=== PATIENT | female | born 1985 ===

== ENCOUNTER 2018-04-14 17:23 | Emergency (ER) | payer MEDICAID ==
[2018-04-14 17:59] VITALS: BMI 40.5
[2018-04-14 18:30] LABS: BASO % 0.3 % (0.0-2.0); EOS # 0.1 K/uL (0.0-0.7); EOS % 1.6 % (0.0-4.0); HEMOGLOBIN 12.5 g/dL (12.0-16.0); LYMPH # 1.4 K/uL (1.0-4.3); LYMPH % 17.9 % (20.0-40.0); MEAN CELL VOLUME 84.1 fl (81.0-99.0); MEAN CORPUSCULAR HEMOGLOBIN 27.8 pg (27.0-31.0); MEAN CORPUSCULAR HGB CONC 33.1 g/dL (33.0-37.0); MEAN PLATELET VOLUME 8.5 fl (7.2-11.7); MONO # 0.4 K/uL (0.0-0.8); MONO % 5.8 % (0.0-10.0); NEUT # 5.7 K/uL (1.8-7.0); NEUT % 74.4 % (50.0-75.0); RBC 4.47 Mil/uL (3.80-5.20); RED CELL DISTRIBUTION WIDTH 14.4 % (11.5-14.5); WHITE BLOOD COUNT 7.6 K/uL (4.8-10.8)
--- NOTE | 2018-04-14 18:38 | ED PDOC ---
HPI: Chest Pain Time Seen by Provider: 04/14/18 17:44 Chief Complaint (Nursing): Chest Pain Chief Complaint (Provider): Chest Pain History Per: Patient History/Exam Limitations: no limitations Onset/Duration Of Symptoms: Hrs Current Symptoms Are (Timing): Still Present Additional Complaint(s): 33 y/o female with a PMHx of Seizures, HTN, CVA and Asthma presents to the ED for evaluation of right sided chest pain. Patient reports she was on the bus when she developed right sided chest pain. Patient states when she informed the business broker, he did not help and thus she got off the bus. Patient reports she then passed out and a bystander called [phone]. Patient is now complaining of a headache. Otherwise, patient denies numbness, weakness, visual changes and shortness of breath. PMD: Bryan Castillo Past Medical History Reviewed: Historical Data, Nursing Documentation, Vital Signs - Medical History PMH: Asthma, CVA, HTN, Seizures Denies: Chronic Kidney Disease - Surgical History Surgical History: No Surg Hx - Family History Family History: States: Unknown Family Hx - Social History Current smoker - smoking cessation education provided: No Alcohol: None - Home Medications Home Medications: Ambulatory Orders Medication Instructions Recorded Nitrofurantoin Macrocrystals 100 mg PO BID #14 cap 04/14/18 [Macrobid] - Allergies Allergies/Adverse Reactions: Allergies Allergy/AdvReac Type Severity Reaction Status Date / Time cephalexin [From Keflex] Allergy ANAPHYLAXIS Verified 04/14/18 17:33 risperidone Allergy ANAPHYLAXIS Verified 04/14/18 17:33 Review of Systems ROS Statement: Except As Marked, All Systems Reviewed And Found Negative Cardiovascular: Positive for: Chest Pain Neurological: Positive for: Headache, Other (loss of consciousness) Physical Exam - Reviewed Nursing Documentation Reviewed: Yes Vital Signs Reviewed: Yes - Physical Exam Appears: Positive for: No Acute Distress Head Exam: Positive for: ATRAUMATIC, NORMOCEPHALIC Skin: Positive for: Normal Color, Warm, Dry Eye Exam: Positive for: Normal appearance, EOMI, PERRL Neck: Positive for: Normal, Painless ROM, Supple Cardiovascular/Chest: Positive for: Regular Rate, Rhythm. Negative for: Murmur Respiratory: Positive for: Normal Breath Sounds. Negative for: Respiratory Distress Gastrointestinal/Abdominal: Positive for: Normal Exam, Soft. Negative for: Tend erness Back: Positive for: Normal Inspection. Negative for: L CVA Tenderness, R CVA Tenderness, Vertebral Tenderness Extremity: Positive for: Normal ROM. Negative for: Deformity Neurologic/Psych: Positive for: Alert, Oriented. Negative for: Motor/Sensory Deficits - Laboratory Results Result Diagrams: 04/14/18 18:10 04/14/18 17:59 Medical Decision Making Medical Decision Making: Time: 174 Impression: Syncope and right sided chest pain Plan: -- CT Head w/o Contrast -- EKG -- CMP -- Troponin I -- ED Urine -- ED Urine Dipstick -- CBC with Differentials -- D Dimer -- PTT -- Prothrombin Time -- CXR Portable -- Glucose, POC -- Glucose, Blood, POC -- Urinalysis Father (cell): [phone] Home: CT RESULTS FINDINGS: BRAIN No acute intraparenchymal hemorrhage. No mass lesion. No CT evidence for acute territorial infarct. No midline shift or extra-axial collections. VENTRICLES: No hydrocephalus. ORBITS: The orbits are unremarkable. SINUSES AND MASTOIDS: The paranasal sinuses and mastoid air cells are clear. BONES: No fracture. SOFT TISSUES: Unremarkable. IMPRESSION: No acute intracranial abnormality. Electronically signed on Apr 14, 2018 6:49:40 PM EST by: Mj Sullivan M.D., Certified by [facility], Diagnostic Radiology 18:50 Pt ambulating around ED without difficulty. Time: 1899 -- Patient endorsed to Dr. Rolle, pending labs and re-evaluation. Scribe Attestation: Documented by Ya Nielson, acting as a scribe for Adina Mathews MD. Provider Scribe Attestation: All medical record entries made by the Scribe were at my direction and personally dictated by me. I have reviewed the chart and agree that the record accurately reflects my personal performance of the history, physical exam, medical decision making, and the department course for this patient. I have also personally directed, reviewed, and agree with the discharge instructions and disposition. Disposition - Clinical Impression Clinical Impression: UTI (urinary tract infection) - Patient ED Disposition Is Patient to be Admitted: Transfer of Care - Disposition Disposition: Transfer of Care Disposition Time: 19:00 Condition: IMPROVED Additional Instructions: follow up with your primary doctor in 1-2 days return to the ED with any worsening or concerning symptoms Prescriptions: Nitrofurantoin Macrocrystals [Macrobid] 100 mg PO BID #14 cap Instructions: Urinary Tract Infection, Adult (DC) Forms: [email or web address] (Japanese), [facility] ED School/Work Excuse Patient Signed Over To: Sigifredo Rolle Handoff Comments: Pending CMP.
[2018-04-14 18:44] LABS: INR 1.1; PROTHROMBIN TIME 12.7 Seconds (9.8-13.1)
[2018-04-14 18:47] LABS: PARTIAL THROMBOPLASTIN TIME 38.2 Seconds (25.6-37.1)
[2018-04-14 18:52] LABS: SQUAMOUS EPITHIAL < 1 /hpf (0-5); URINE BILIRUBIN NEGATIVE (NEGATIVE); URINE BLOOD NEGATIVE (NEGATIVE); URINE CLARITY SLIGHTY-CLOUDY (Clear); URINE COLOR STRAW (YELLOW); URINE GLUCOSE (UA) NEG (NEGATIVE); URINE LEUKOCYTE ESTERASE LARGE Leu/uL (Negative); URINE PROTEIN NEGATIVE (NEGATIVE); URINE UROBILINOGEN 0.2-1.0 mg/dL (0.2-1.0)
[2018-04-14 18:52] LABS: D DIMER < 200 ng/mlDDU (0-230)
[2018-04-14 19:01] LABS: BLOOD UREA NITROGEN 12 mg/dl (7-17); CALCIUM 9.6 mg/dL (8.4-10.2); GFR NON-AFRICAN AMERICAN > 60
[2018-04-14 19:19] LABS: ALB/GLOB RATIO 1.3 (1.0-2.1); ALBUMIN 4.4 g/dL (3.5-5.0); ALT/SGPT 28 U/L (9-52); AST/SGOT 42 U/L (14-36)
--- NOTE | 2018-04-14 19:34 | ED PDOC ---
- Laboratory Results Result Diagrams: 04/14/18 18:10 04/14/18 17:59 Lab Results: PT 12.7 Seconds (9.8-13.1) 04/14/18 18:10 INR 1.1 04/14/18 18:10 APTT 38.2 Seconds (25.6-37.1) H 04/14/18 18:10 D-Dimer, Quantitative < 200 ng/mlDDU (0-230) 04/14/18 18:10 Troponin I < 0.0120 ng/mL (0.00-0.120) 04/14/18 17:59 Total Bilirubin 0.7 mg/dl (0.2-1.3) 04/14/18 17:59 AST 42 U/L (14-36) H 04/14/18 17:59 ALT 28 U/L (9-52) 04/14/18 17:59 Alkaline Phosphatase 89 U/L (38-126) 04/14/18 17:59 Total Protein 7.7 G/DL (6.3-8.2) 04/14/18 17:59 Albumin 4.4 g/dL (3.5-5.0) 04/14/18 17:59 Globulin 3.3 gm/dL (2.2-3.9) 04/14/18 17:59 Albumin/Globulin Ratio 1.3 (1.0-2.1) 04/14/18 17:59 Urine Color Straw (YELLOW) 04/14/18 18:30 Urine Clarity Slighty-cloudy (Clear) 04/14/18 18:30 Urine pH 8.0 (5.0-8.0) 04/14/18 18:30 Ur Specific [place] 1.005 (1.003-1.030) 04/14/18 18:30 Urine Protein Negative mg/dL (NEGATIVE) 04/14/18 18:30 Urine Glucose (UA) Neg mg/dL (NEGATIVE) 04/14/18 18:30 Urine Ketones Negative mg/dL (NEGATIVE) 04/14/18 18:30 Urine Blood Negative (NEGATIVE) 04/14/18 18:30 Urine Nitrate Negative (NEGATIVE) 04/14/18 18:30 Urine Bilirubin Negative (NEGATIVE) 04/14/18 18:30 Urine Urobilinogen 0.2-1.0 mg/dL (0.2-1.0) 04/14/18 18:30 Ur Leukocyte Esterase Large Markell/uL (Negative) 04/14/18 18:30 Urine RBC (Auto) 3 /hpf (0-3) 04/14/18 18:30 Urine Microscopic WBC 58 /hpf (0-5) H 04/14/18 18:30 Ur Squamous Epith Cells < 1 /hpf (0-5) 04/14/18 18:30 Medical Decision Making Medical Decision Making: Time: 1899 -- Patient endorsed to me by Dr. Mathews, pending labs and re-evaluation. Time: 1939 -- Labs reviewed and demonstrate a UTI. On re-evaluation, patient is awake and alert. Patient is stable for discharge home with a diagnosis of a UTI and a prescription for Macrobid. Patient instructed to follow up with PMD in 1-2 days for further management. Scribe Attestation: Documented by Ya Nielson, acting as a scribe for Sigifredo Rolle MD. Provider Scribe Attestation: All medical record entries made by the Scribe were at my direction and personal ly dictated by me. I have reviewed the chart and agree that the record accurately reflects my personal performance of the history, physical exam, medical decision making, and the department course for this patient. I have also personally directed, reviewed, and agree with the discharge instructions and disposition. Disposition Counseled Patient/Family Regarding: Studies Performed, Diagnosis, Need For Followup, Rx Given - Clinical Impression Clinical Impression: UTI (urinary tract infection) - POA Present On Arrival: None - Disposition Disposition: Routine/Home Disposition Time: 19:40 Condition: IMPROVED Additional Instructions: follow up with your primary doctor in 1-2 days return to the ED with any worsening or concerning symptoms Prescriptions: Nitrofurantoin Macrocrystals [Macrobid] 100 mg PO BID #14 cap Instructions: Urinary Tract Infection, Adult (DC) Forms: [employer] ([place])
[2018-04-15 00:58] VITALS: BP 122/62; PULSE 88; RESP 18; TEMP 97.6; O2SAT 97
--- NOTE | 2018-04-15 07:53 | CARD ---
APPROVED REPORT Date of service: 04/14/2018 EKG Measurement Heart [id number] <Conclusion> Normal sinus rhythm Minimal voltage criteria for LVH, may be normal variant Otherwise normal ECG
--- NOTE | 2018-04-15 09:24 | RAD ---
Date of service: 04/14/2018 HISTORY: R sided CP COMPARISON: No prior. FINDINGS: LUNGS: Limited inspiratory volume. No acute infiltrate identified bilaterally. PLEURA: No significant pleural effusion identified, no pneumothorax apparent. CARDIOVASCULAR: No aortic atherosclerotic calcification present. Cardiomegaly not excluded. No pulmonary vascular congestion. OSSEOUS STRUCTURES: No significant abnormalities. VISUALIZED UPPER ABDOMEN: Normal. OTHER FINDINGS: None. IMPRESSION: No acute pulmonary infiltrates bilaterally. Diminished inspiratory volume bilaterally nevertheless. No pulmonary vascular congestion. Cardiac size prominent with likely technical enlargement component given frontal technique.
--- NOTE | 2018-04-15 13:27 | CT ---
Date of service: 04/14/2018 PROCEDURE: CT HEAD WITHOUT CONTRAST. HISTORY: QUICK COMPARISON: None available. TECHNIQUE: Axial computed tomography images were obtained through the head/brain without intravenous contrast. Radiation dose: Total exam DLP = 2485.08 mGy-cm. This CT exam was performed using one or more of the following dose reduction techniques: Automated exposure control, adjustment of the mA and/or kV according to patient size, and/or use of iterative reconstruction technique. FINDINGS: HEMORRHAGE: No intracranial hemorrhage. BRAIN: Normal rosario-white matter differentiation and density are appreciated throughout the cerebrum and cerebellum with the brainstem appearing unremarkable as well. There is no mass effect. There is no suspicious extra-axial fluid collection and the midline brain anatomy appears diffusely unremarkable. VENTRICLES: Unremarkable. No hydrocephalus. CALVARIUM: Unremarkable. PARANASAL SINUSES: Unremarkable as visualized. No significant inflammatory changes. MASTOID AIR CELLS: Unremarkable as visualized. No inflammatory changes. OTHER FINDINGS: None. IMPRESSION: Unremarkable unenhanced head CT. Concordant preliminary report from Yimi, 04/14/2018 6:49 p.m..
== END 2018-04-14 20:38 | disposition home or self-care (01) ==
LOC: H.ER 17:23
DX: N39.0 Urinary tract infection, site not specified (principal); I10 Essential (primary) hypertension; J45.909 Unspecified asthma, uncomplicated; R07.89 Other chest pain; R56.9 Unspecified convulsions; Z88.1 Allergy status to other antibiotic agents; Z88.8 Allergy status to other drugs, medicaments and biological substances; Z86.73 Personal history of transient ischemic attack (TIA), and cerebral infarction without residual deficits